=== PATIENT | male | born 1960 | race Caucasian/White ===

== ENCOUNTER 2024-12-14 02:32 | Outpatient (CLI) | payer MEDICARE, SELFPAY ==
--- NOTE | 2024-12-14 09:30 | DI.RAD_ITS ---
Exam(s) XR FOOT RT COMPLETE EXAM: XR FOOT RT COMPLETE CLINICAL HISTORY: heel pain. TECHNIQUE: 2D digital imaging was performed. Three views. COMPARISON: No exams were available for comparison FINDINGS: BONES: No acute fracture is present. No bony destructive lesion is seen. Small plantar calcaneal spur. JOINTS: No dislocation present. Fifth metatarsal varus. SOFT TISSUE: Normal mild swelling around 5th metatarsal head. IMPRESSION: Fifth metatarsal varus. DATA REPOSITORY: RADIATION DOSE DELIVERED:
== END 2024-12-14 02:52 ==
PROVIDERS: PCP Family Medicine; Visit Provider Podiatrist
DX: M79.671 Pain in right foot (principal); Q84.6 Other congenital malformations of nails; L03.116 Cellulitis of left lower limb; M72.2 Plantar fascial fibromatosis; M79.672 Pain in left foot; B35.3 Tinea pedis
CPT/HCPCS: 11730; 20550; 99214; J0702; J1100; 73630

== ENCOUNTER → 2025-02-01 11:06 | Outpatient (BNVA) | payer MEDICARE, SELFPAY | PROVIDERS: PCP Family Medicine; Referring Provider Family Medicine; Visit Provider Podiatrist | DX: Q84.6 Other congenital malformations of nails (principal); L03.116 Cellulitis of left lower limb; M72.2 Plantar fascial fibromatosis; M79.671 Pain in right foot; M79.672 Pain in left foot | CPT/HCPCS: 99213 ==